=== PATIENT | male | born 1960 | race Caucasian/White ===

== ENCOUNTER 2021-12-28 13:05 | Inpatient (IN) | payer BC ==
[2021-12-28] MEDS ORDERED: NICOTINE 10 MG CARTRIDGE (INHALER) IH PRN (13:45)
[2021-12-28] MEDS ORDERED: DICYCLOMINE HCL 10 MG CAPSULE PO PRN (13:45)
[2021-12-28] MEDS ORDERED: chlordiazePOXIDE HCL 25 MG CAPSULE PO PRN (13:45)
[2021-12-28] MEDS ORDERED: MAGNESIUM CITRATE 300 ML BOTTLE PO PRN (13:45)
[2021-12-28] MEDS ORDERED: LOPERAMIDE HCL 2 MG CAPSULE PO PRN (13:45)
[2021-12-28] MEDS ORDERED: IBUPROFEN 400 MG TABLET (FP) PO PRN (13:45)
[2021-12-28] MEDS ORDERED: BISMUTH SUBSALICYLATE 262 MG/15 ML BTL PO PRN (13:45)
[2021-12-28] MEDS ORDERED: BENZOCAINE/MENTHOL (CHLORASEPTIC ) LOZENGE MM PRN (13:45)
[2021-12-28] MEDS ORDERED: ACETAMINOPHEN 325 MG TABLET (FP) PO PRN (13:45)
[2021-12-28 14:15] VITALS: BMI 18.4
[2021-12-28 15:56] LABS: HEMOGLOBIN 13.7 GM/dL (11.7-16.9); MCH 34.8 pg (25.7-33.7); MCHC 34.2 g/dl (32.0-35.9); MEAN CELL VOLUME 101.8 fl (80-96); MEAN PLT VOLUME 7.1 fl (7.5-11.1); PLATELET COUNT 129 10^3/uL (134-434); RBC 3.93 M/mm3 (4.00-5.60); RDW 13.5 % (11.9-15.9); WHITE BLOOD COUNT 7.3 K/mm3 (4.0-10.0)
[2021-12-28 15:57] LABS: CHLORIDE 100 mmol/L (98-107); SODIUM 141 mmol/L (136-145)
[2021-12-28 16:00] LABS: CALCIUM 8.6 mg/dL (8.5-10.1)
[2021-12-28 16:01] LABS: ALBUMIN 3.7 g/dl (3.4-5.0); BLOOD UREA NITROGEN 7.6 mg/dL (7-18); CO2 32 mmol/L (21-32); GLUCOSE,RANDOM 137 mg/dL (74-106)
[2021-12-28 16:04] LABS: CREATININE 0.7 mg/dL (0.55-1.3); SGOT/AST 95 U/L (15-37); SGPT/ALT 49 U/L (13-61)
[2021-12-28 16:06] LABS: BILIRUBIN,TOTAL 0.6 mg/dL (0.2-1)
[2021-12-28 16:07] LABS: ALK PHOS 114 U/L (45-117)
[2021-12-28] MEDS: NICOTINE 14 MG/24 HOURS TOPICAL PATCH TD SCH (16:08)
[2021-12-28] MEDS: PRENATAL VITAMINS W/ FOLIC ACID TABLET (FP) PO SCH (16:09)
[2021-12-28] MEDS: ALBUTEROL SO4 HFA INHALER IH SCH ×2 (16:09→22:14)
[2021-12-28] MEDS: hydrOXYzine PAMOATE 25 MG CAPSULE (FP) PO SCH ×3 (16:09→22:11)
[2021-12-28 16:10] LABS: ANION GAP 10 MMOL/L (8-16)
[2021-12-28] MEDS: chlordiazePOXIDE HCL 25 MG CAPSULE PO SCH ×2 (17:49→22:10)
[2021-12-28] MEDS: MAG HYDROX/AL HYDROX/SIMETH 30 ML UNIT-DOSE CUP PO PRN (17:54)
[2021-12-28] MEDS: ONDANSETRON *ODT* 4 MG TABLET SL PRN (20:43)
[2021-12-28] MEDS: THIAMINE HCL 100 MG TABLET (FP) PO SCH (22:10)
[2021-12-28] MEDS: MELATONIN 5 MG TABLETS PO SCH (22:11)
[2021-12-29] MEDS: ALBUTEROL SO4 HFA INHALER IH SCH ×4 (03:30→22:37)
[2021-12-29] MEDS: chlordiazePOXIDE HCL 25 MG CAPSULE PO SCH ×4 (05:28→22:18)
[2021-12-29] MEDS: hydrOXYzine PAMOATE 25 MG CAPSULE (FP) PO SCH ×5 (05:29→22:17)
[2021-12-29] MEDS: METHOCARBAMOL 500 MG TABLET PO PRN ×2 (05:30→10:30)
[2021-12-29] MEDS: PRENATAL VITAMINS W/ FOLIC ACID TABLET (FP) PO SCH (10:25)
[2021-12-29] MEDS: ONDANSETRON *ODT* 4 MG TABLET SL PRN ×2 (10:26→22:21)
[2021-12-29] MEDS: NICOTINE 14 MG/24 HOURS TOPICAL PATCH TD SCH (11:14)
[2021-12-29] MEDS ORDERED: cloNIDine HCL 0.1 MG TABLET PO ONE (12:50)
[2021-12-29] MEDS ORDERED: POTASSIUM CHLORIDE ORAL LIQUID 20 MEQ/15 ML PO ONE (12:52)
[2021-12-29] MEDS: MAG HYDROX/AL HYDROX/SIMETH 30 ML UNIT-DOSE CUP PO PRN (17:15)
[2021-12-29] MEDS: ACETAMINOPHEN 325 MG TABLET (FP) PO PRN (18:18)
[2021-12-29] MEDS: THIAMINE HCL 100 MG TABLET (FP) PO SCH (22:18)
[2021-12-29] MEDS: POTASSIUM CHLORIDE ORAL LIQUID 20 MEQ/15 ML PO SCH (22:18)
[2021-12-29] MEDS: MELATONIN 5 MG TABLETS PO SCH (22:37)
[2021-12-30] MEDS: ALBUTEROL SO4 HFA INHALER IH SCH ×3 (04:06→14:28)
[2021-12-30] MEDS: chlordiazePOXIDE HCL 25 MG CAPSULE PO SCH ×4 (05:43→22:10)
[2021-12-30] MEDS: hydrOXYzine PAMOATE 25 MG CAPSULE (FP) PO SCH ×5 (05:43→22:11)
[2021-12-30] MEDS: MAGNESIUM HYDROX 2400MG/30ML ORAL SUSPENSION 30 ML CUP PO PRN ×2 (05:44→16:58)
[2021-12-30] MEDS: PRENATAL VITAMINS W/ FOLIC ACID TABLET (FP) PO SCH (10:04)
[2021-12-30] MEDS: POTASSIUM CHLORIDE ORAL LIQUID 20 MEQ/15 ML PO SCH ×2 (10:05→22:10)
[2021-12-30] MEDS: NICOTINE 14 MG/24 HOURS TOPICAL PATCH TD SCH (10:05)
[2021-12-30] MEDS: MAG HYDROX/AL HYDROX/SIMETH 30 ML UNIT-DOSE CUP PO PRN (12:26)
[2021-12-30 16:08] LABS: SARS-CoV-2 NAA Not Detected (Not Detected)
[2021-12-30] MEDS: ONDANSETRON *ODT* 4 MG TABLET SL PRN (16:58)
[2021-12-30] MEDS: ALBUTEROL SO4 HFA INHALER IH PRN (17:44)
[2021-12-30] MEDS: ACETAMINOPHEN 325 MG TABLET (FP) PO PRN (17:44)
[2021-12-30] MEDS: MELATONIN 5 MG TABLETS PO SCH (22:10)
[2021-12-30] MEDS: THIAMINE HCL 100 MG TABLET (FP) PO SCH (22:11)
[2021-12-31] MEDS ORDERED: chlordiazePOXIDE HCL 10 MG CAPSULE PO PRN
[2021-12-31] MEDS: chlordiazePOXIDE HCL 10 MG CAPSULE PO SCH ×4 (05:59→22:05)
[2021-12-31] MEDS: hydrOXYzine PAMOATE 25 MG CAPSULE (FP) PO SCH ×5 (05:59→22:05)
[2021-12-31] MEDS: MAG HYDROX/AL HYDROX/SIMETH 30 ML UNIT-DOSE CUP PO PRN ×2 (06:01→17:49)
[2021-12-31] MEDS ORDERED: PANTOPRAZOLE 40 MG TABLET PO SCH ×2 (10:00→10:45)
[2021-12-31] MEDS: NICOTINE 14 MG/24 HOURS TOPICAL PATCH TD SCH (10:24)
[2021-12-31] MEDS: PRENATAL VITAMINS W/ FOLIC ACID TABLET (FP) PO SCH (10:24)
[2021-12-31] MEDS: ALBUTEROL SO4 HFA INHALER IH PRN (13:42)
[2021-12-31] MEDS: MELATONIN 5 MG TABLETS PO SCH (22:05)
[2021-12-31] MEDS: THIAMINE HCL 100 MG TABLET (FP) PO SCH (22:07)
[2022-01-01] MEDS: chlordiazePOXIDE HCL 10 MG CAPSULE PO SCH ×2 (05:24→17:37)
[2022-01-01] MEDS: hydrOXYzine PAMOATE 25 MG CAPSULE (FP) PO SCH ×5 (05:24→21:57)
[2022-01-01] MEDS: ONDANSETRON *ODT* 4 MG TABLET SL PRN ×2 (05:27→17:40)
[2022-01-01] MEDS ORDERED: PANTOPRAZOLE 40 MG TABLET PO SCH (10:00)
[2022-01-01] MEDS: PRENATAL VITAMINS W/ FOLIC ACID TABLET (FP) PO SCH (10:11)
[2022-01-01] MEDS: NICOTINE 14 MG/24 HOURS TOPICAL PATCH TD SCH (10:11)
[2022-01-01] MEDS: ALBUTEROL SO4 HFA INHALER IH PRN (13:44)
[2022-01-01] MEDS: MAG HYDROX/AL HYDROX/SIMETH 30 ML UNIT-DOSE CUP PO PRN ×2 (16:38→22:01)
[2022-01-01] MEDS: MELATONIN 5 MG TABLETS PO SCH (21:57)
[2022-01-01] MEDS: THIAMINE HCL 100 MG TABLET (FP) PO SCH (21:57)
[2022-01-01] MEDS: METHOCARBAMOL 500 MG TABLET PO PRN (21:58)
[2022-01-02] MEDS: ONDANSETRON *ODT* 4 MG TABLET SL PRN (02:43)
[2022-01-02] MEDS ORDERED: chlordiazePOXIDE HCL 10 MG CAPSULE PO ONE (05:00)
[2022-01-02] MEDS: hydrOXYzine PAMOATE 25 MG CAPSULE (FP) PO SCH (06:03)
[2022-01-02] MEDS ORDERED: PANTOPRAZOLE 40 MG TABLET PO SCH (08:00)
[2022-01-02] MEDS: MAG HYDROX/AL HYDROX/SIMETH 30 ML UNIT-DOSE CUP PO PRN (08:59)
[2022-01-02 09:21] VITALS: BP 146/97; PULSE 90; TEMP 96.9
== END 2022-01-02 09:50 | disposition home or self-care (01) | DRG 775 ==
LOC: YASAS 13:05 → Y3N 14:21
PROVIDERS: ADMIT Allergy & Immunology; ATTEND Surgery
PROC: HZ2ZZZZ Detoxification Services for Substance Abuse Treatment (ICD-10-PCS; principal; 2021-12-28)
DX: F10.230 Alcohol dependence with withdrawal, uncomplicated (principal); F12.20 Cannabis dependence, uncomplicated; F17.210 Nicotine dependence, cigarettes, uncomplicated; F43.10 Post-traumatic stress disorder, unspecified; J45.909 Unspecified asthma, uncomplicated; K21.9 Gastro-esophageal reflux disease without esophagitis; Z86.11 Personal history of tuberculosis; Z91.013 Allergy to seafood
CPT/HCPCS: 36415; 71046-TC-FY; 80053; 82947; 83036; 84132; 85027; 86780; 87811; 93005; 93010; C9803-CS; J0735; Q0162; U0003; U0005